=== PATIENT | female | born 1965 | race American Indian/Alaskan Native ===

== ENCOUNTER 2016-12-27 11:04 | Outpatient (CLI) | payer OTHER ==
--- NOTE | 2016-12-27 14:24 | Mammography Report ---
Bilateral mammogram: Compared to 02/01/14. CAD study utilized for the Findings: Predominance of adipose tissue bilaterally. No mass or microcalcification. Benign axillary nodes. Impression: Benign findings. Annual followup recommended. BI-RADS CATEGORY: 2 = Benign ACR BI-RADS MAMMOGRAPHIC CODES: 0 = Needs additional imaging evaluation; 1 = Negative; 2 = Benign; 3 = Probably benign; 4 = Suspicious; 5 = Malignant; 6 = Known biopsy-proven malignancy COMMENT: 1. Dense breast tissue, i.e., adenosis, fibrocystic changes, etc., may obscure an underlying neoplasm. 2. Approximately 10% of cancers are not detected with mammography. 3. A negative mammography report should not delay biopsy if a clinically suspicious mass is present. COMMENT: Patient follow-up letters are generated in [employer].
== END 2016-12-27 11:05 | disposition home or self-care (01) ==
LOC: MAMMO 11:04
PROVIDERS: ATTEND Family Medicine
DX: Z12.31 Encounter for screening mammogram for malignant neoplasm of breast (principal)
CPT/HCPCS: 77067; G0202

== ENCOUNTER 2017-12-31 10:12 | Outpatient (CLI) | payer OTHER ==
--- NOTE | 2018-01-02 08:29 | Mammography Report ---
BILATERAL DIGITAL SCREENING MAMMOGRAM with CAD: 12/31/17 10:12:00 CLINICAL: Routine screening. COMPARISON:12/27/16 and 02/01/14 FINDINGS: The breasts are heterogeneously dense, which may obscure small masses. A left focal asymmetry requires additional imaging.No architectural distortion or suspicious calcifications.The right breast is negative. IMPRESSION: Left focal asymmetry requiring further workup. BI-RADS CATEGORY: 0 -- Additional Imaging Evaluation Required RECOMMENDATION: Recall for or left lateralmedial , spot magnification CC and MLO views and left breast ultrasound if needed. ACR BI-RADS MAMMOGRAPHIC CODES: 0 = Needs additional imaging evaluation; 1 = Negative; 2 = Benign; 3 = Probably benign; 4 = Suspicious; 5 = Malignant; 6 = Known biopsy-proven malignancy COMMENT: 1. Dense breast tissue, i.e., adenosis, fibrocystic changes, etc., may obscure an underlying neoplasm. 2. Approximately 10% of cancers are not detected with mammography. 3. A negative mammography report should not delay biopsy if a clinically suspicious mass is present. COMMENT: Patient follow-up letters are generated via our [employer] application.
== END 2017-12-31 10:13 | disposition home or self-care (01) ==
LOC: MAMMO 10:12
PROVIDERS: ATTEND Family Medicine
DX: Z12.31 Encounter for screening mammogram for malignant neoplasm of breast (principal)
CPT/HCPCS: 77067

== ENCOUNTER 2018-01-29 09:53 | Outpatient (CLI) | payer OTHER ==
--- NOTE | 2018-01-29 10:38 | XRay Report ---
Right knee 2 views: History: Thyroid problems. Osteoarthritis. Findings: No bony or articular abnormality. No fracture dislocation or soft tissue calcification. Suspicion of fluid in the suprapatellar bursae. Impression: Suspicion of fluid in the suprapatellar bursa.
--- NOTE | 2018-01-29 11:30 | XRay Report ---
Lumbar spine 3 views: History: Lupus, thyroid problems. Findings: Normal height of vertebral bodies. Minimal decrease in the height of L2-L3 and L3-4 and L5-S1. Sclerotic articular surfaces with peripheral osteophytes suggestive of degenerative changes. No fracture. No soft tissue calcification. Impression: Degenerative lumbar spine.
== END 2018-01-29 09:54 | disposition home or self-care (01) ==
LOC: XRAY 09:53
PROVIDERS: ATTEND Internal Medicine
DX: M47.816 Spondylosis without myelopathy or radiculopathy, lumbar region (principal); M25.78 Osteophyte, vertebrae; F43.9 Reaction to severe stress, unspecified
CPT/HCPCS: 72100

== ENCOUNTER 2019-01-06 10:56 | Outpatient (CLI) | payer OTHER ==
--- NOTE | 2019-01-06 12:44 | Ultrasound Report ---
BILATERAL DIGITAL DIAGNOSTIC MAMMOGRAM with CAD and LEFT BREAST ULTRASOUND: 01/06/19 10:56:00 CLINICAL: Her last screening mammogram was abnormal but she did not return for further workup. COMPARISON:12/31/17 FINDINGS: The breasts are heterogeneously dense, which may obscure small masses. An oval 9 mm circumscribed mass of the left breast at 1 o'clock is not significantly changed compared to the last exam.No other mass, architectural distortion or suspicious calcifications. Ultrasound of the left breast demonstrated a benign intramammary lymph node at 12 o'clock 5 cm from the nipple. It measures 8 x 5 x 6 mm, has a reniform shape with a central notch and correlates with the mammographic density. IMPRESSION: Negative left breast with a benign intramammary lymph node at 12 to 1 o'clock.Negative right breast. BI-RADS CATEGORY: 2 - - Benign RECOMMENDATION: Routine mammographic screening in one year. COMMENT: 1. Dense breast tissue, i.e., adenosis, fibrocystic changes, etc., may obscure an underlying neoplasm. 2. Approximately 10% of cancers are not detected with mammography. 3. A negative mammography report should not delay biopsy if a clinically suspicious mass is present. COMMENT: Patient follow-up letters are generated by our [employer] application.
== END 2019-01-06 10:57 | disposition home or self-care (01) ==
LOC: MAMMO 10:56
PROVIDERS: ATTEND Family Medicine
DX: R92.8 Other abnormal and inconclusive findings on diagnostic imaging of breast (principal); M19.90 Unspecified osteoarthritis, unspecified site
CPT/HCPCS: 77066; 77067

== ENCOUNTER 2020-05-25 11:51 | Outpatient (CLI) | payer OTHER ==
--- NOTE | 2020-05-26 10:05 | Mammography Report ---
DIGITAL SCREENING MAMMOGRAM WITH CAD, 05/25/2020 INDICATION: Routine screening mammography. TECHNIQUE: Digital bilateral 2D mammography was obtained in the craniocaudal and mediolateral obliq ue projections. This examination was interpreted with the benefit of Computer-Aided Detection analysi s. COMPARISON: 01/06/2019, 12/31/2017 FINDINGS: Breast Density: There are scattered areas of fibroglandular density. There is no evidence of dominant mass, suspicious calcifications or architectural distortion in the r ight breast. The previously described node in the 1:00 position middle depth of the left breast is la rger and measures 1.4 x 1.1 cm, previously 1.0 x 0.9 cm. No other significant abnormality of the left breast. IMPRESSION: Interval enlargement of the previously described left breast noted. A limited left breast ultrasound is recommended for further evaluation. Follow up recommendation: Ultrasound Category 0: Incomplete. Needs additional imaging evaluation and/or prior mammograms for comparison. A "normal" or negative report should not discourage follow up or biopsy of a clinically significant f inding. A written summary of these findings will be mailed to the patient. The patient will be entered into a mammography reporting system which will generate a reminder letter for the patient's next appointmen t at the appropriate interval. The [employer] recommends yearly mammograms starting at age 40 and continuing as l alicia as a woman is in good health. Breast MRI is recommended for women with an approximate 20-25% or greater lifetime risk of breast cancer, including women with a strong family history of breast or ova bekah cancer or who have been treated for Hodgkin's disease. Signer Name: Jone Marshall MD Signed: 05/26/2020 10:00 AM Workstation Name: [email or web address]
== END 2020-05-25 11:52 | disposition home or self-care (01) ==
LOC: MAMMO 11:51
PROVIDERS: ATTEND Family Medicine
DX: Z12.31 Encounter for screening mammogram for malignant neoplasm of breast (principal)
CPT/HCPCS: 77067

== ENCOUNTER 2020-09-13 09:06 | Outpatient (CLI) | payer OTHER ==
--- NOTE | 2020-09-13 11:44 | Ultrasound Report ---
ULTRASOUND BREAST LEFT LIMITED, 09/13/2020 CLINICAL INFORMATION / INDICATION: ABNORMAL MAMMOGRAM. Patient presents as a callback from screening mammogram for further evaluation of a nodular density in the left breast. TECHNIQUE: Targeted ultrasound evaluation was performed of the area of interest. COMPARISON: Prior mammogram 05/25/2020 FINDINGS: Corresponding with the nodular density seen on recent mammogram, there is an irregular hypoechoic mas s in the left breast 12:00 position located 5 cm from the nipple measuring up to 1.2 x 0.3 x 0.8 cm. An adjacent blood vessel is noted. Targeted ultrasound of the left axilla reveals several borderline axillary lymph nodes with cortical thickness upper limits of normal measuring up to 3 mm in thickness . IMPRESSION: 1. An irregular hypoechoic mass in the left breast corresponds with the nodular density seen mammogra phically and is considered suspicious for malignancy, ultrasound-guided biopsy is recommended. 2. A few borderline left axillary lymph nodes with upper normal cortical thickness are indeterminant and may be reactive or metastatic. Follow up recommendation: Biopsy BI-RADS Category 4: Suspicious for Malignancy. A normal or "negative" report should not preclude biopsy or follow-up of a clinically suspicious find ing. Signer Name: Fatemeh Rodriguez MD Signed: 09/13/2020 11:40 AM Workstation Name: [id number]
== END 2020-09-13 09:07 | disposition home or self-care (01) ==
LOC: US 09:06
PROVIDERS: ATTEND Family Medicine
DX: N63.42 Unspecified lump in left breast, subareolar (principal)

== ENCOUNTER 2020-11-07 08:13 | Outpatient (CLI) | payer OTHER ==
--- NOTE | 2020-11-07 10:03 | Ultrasound Report ---
ULTRASOUND GUIDED LEFT BREAST BIOPSY, 11/07/2020 LEFT DIAGNOSTIC MAMMOGRAM CLINICAL INFORMATION / INDICATION: POST US BX. Left breast nodule, here for biopsy COMPARISON: Ultrasound from 09/13/2020 and mammogram from 05/25/2020 PROCEDURE: Risks, benefits, and indications to the procedure were discussed with the patient in detail, includin g bleeding, infection, hematoma formation, and inadequate tissue sampling. The patient agreed to proc eed with both verbal and written consent. A timeout procedure was performed with two patient identifi ers. The breast was prepped and draped in the usual sterile fashion. Lidocaine 1% was used for local anest hesia. Under direct ultrasound guidance, 2 12-gauge core samples were obtained of the left breast nod ule using a vacuum-assisted biopsy needle. A biopsy marker was then placed. Biopsy device was remove d and hemostasis achieved with manual pressure. A sterile dressing was applied to the skin. The patient tolerated the procedure without difficulty. No complications were encountered. Postbiopsy instructions were discussed with the patient and given in writing. Specimens were sent to pathology. The patient was then sent for a confirmatory mammogram to demonstrate adequate clip positioning in th e area in question. IMPRESSION: 1. Technically successful ultrasound guided left breast biopsy. 2. Satisfactory positioning of the biopsy clip on the post procedure mammogram. Biopsy results are pending and will be reported in an addendum. Signer Name: Chance Painter MD Signed: 11/07/2020 9:58 AM Workstation Name: [id number]
== END 2020-11-07 08:14 | disposition home or self-care (01) ==
LOC: US 08:13
PROVIDERS: ATTEND Family Medicine
DX: N63.21 Unspecified lump in the left breast, upper outer quadrant (principal); N64.89 Other specified disorders of breast; M19.90 Unspecified osteoarthritis, unspecified site; Z91.040 Latex allergy status; Z88.2 Allergy status to sulfonamides
CPT/HCPCS: 88305

== ENCOUNTER 2021-12-25 22:05 | Emergency (ER) | payer MEDICAID, OTHER ==
[2021-12-25 22:16] VITALS: BP 137/88
== END 2021-12-25 22:31 | disposition left against medical advice (07) ==
LOC: ED 22:05
DX: Z01.30 Encounter for examination of blood pressure without abnormal findings (principal); Z53.21 Procedure and treatment not carried out due to patient leaving prior to being seen by health care provider